=== PATIENT | male | born 1995 | race Caucasian/White ===

== ENCOUNTER 2022-01-21 09:12 | Emergency (ER) | payer MEDICAID ==
[~2022-01-21] VITALS: Ht 188 cm; Wt 131.5 kg
[2022-01-21 10:30] LABS: Basophils # (auto) 0.2 10 ^3/uL (0-0.2); Basophils % (auto) 1.6 % (0.0-2.0); Eosinophils # (auto) 0 10 ^3/uL (0-0.8); Eosinophils % (auto) 0.1 % (0.0-7.0); Hematocrit 46.2 % (41.0-53.0); Lymphocytes # (auto) 0.9 10 ^3/uL (0.4-5.4); Lymphocytes % (auto) 6.5 % (10.0-50.0); Mean Corpuscular Hemoglobin 28.5 pg (28.0-32.0); Mean Corpuscular Hgb Conc. 34.5 g/dL (32.0-36.0); Mean Corpuscular Volume 82.5 fL (80.0-100.0); Monocytes # (auto) 0.5 10 ^3/uL (0-1.3); Monocytes % (auto) 3.3 % (0.0-12.0); Neutrophils # (auto) 12.5 10 ^3/uL (1.6-8.6); Neutrophils % (auto) 88.5 % (37.0-80.0); Red Blood Cells 5.61 10^6/uL (4.5-5.90); Red Cell Distribution Width 13.6 % (11.8-14.3); White Blood Cell 14.1 10^3/uL (4.4-10.8)
[2022-01-21 10:34] LABS: Albumin 4.3 g/dL (3.4-5.0); Calcium 9.4 mg/dL (8.5-10.1); Potassium 3.6 mmol/L (3.5-5.1)
[2022-01-21 10:37] LABS: BUN/Creatinine Ratio 12.3; Bilirubin, Total 0.4 mg/dL (0.2-1.0); Total Protein 8.8 g/dL (6.4-8.2)
[2022-01-21 12:18] LABS: Urine Bacteria FEW /hpf (None Seen); Urine Blood Negative /uL (Negative); Urine Mucus FEW (None Seen); Urine Specific Gravity 1.029 (1.001-1.035); Urine WBC <1 /hpf (0 - 3)
[2022-01-21] MEDS ORDERED: HYDROmorphone HCL 2 MG/ML VL IV ONE (13:00)
[2022-01-21] MEDS ORDERED: ONDANSETRON HCL 4 MG/2 ML VIAL IV ONE (13:00)
[2022-01-21] MEDS ORDERED: CIPR-173 PO ×2 (13:09→13:36)
[2022-01-21] MEDS ORDERED: ONDA-144 PO ×2 (13:09→13:36)
[2022-01-21] MEDS ORDERED: PERCOT PO ×2 (13:09→13:36)
[2022-01-21 14:22] VITALS: BP 143/90
== END 2022-01-21 14:24 | disposition home or self-care (01) ==
LOC: ER 09:12
DX: K29.70 Gastritis, unspecified, without bleeding (principal); N39.0 Urinary tract infection, site not specified; I10 Essential (primary) hypertension
CPT/HCPCS: 36415; 74176; 80053; 81001; 83690; 85025; 96374; 96375; 99285; J1170; J2405

== ENCOUNTER 2022-04-19 08:34 | Emergency (ER) | payer MEDICAID ==
[~2022-04-19] VITALS: Ht 188 cm; Wt 133.4 kg
[~2022-04-19 08:34] MED LIST: CIPR-173 PO; ONDA-144 PO; PERCOT PO
[2022-04-19 08:40] VITALS: BP 164/101
[2022-04-19 09:16] LABS: Basophils # (auto) 0 10 ^3/uL (0-0.2); Basophils % (auto) 0.5 % (0.0-2.0); Eosinophils # (auto) 0.2 10 ^3/uL (0-0.8); Eosinophils % (auto) 2.2 % (0.0-7.0); Hematocrit 44.3 % (41.0-53.0); Lymphocytes # (auto) 1.6 10 ^3/uL (0.4-5.4); Lymphocytes % (auto) 22.9 % (10.0-50.0); Mean Corpuscular Hemoglobin 28.4 pg (28.0-32.0); Mean Corpuscular Hgb Conc. 33.9 g/dL (32.0-36.0); Mean Corpuscular Volume 83.7 fL (80.0-100.0); Monocytes # (auto) 0.6 10 ^3/uL (0-1.3); Monocytes % (auto) 8.2 % (0.0-12.0); Neutrophils # (auto) 4.8 10 ^3/uL (1.6-8.6); Neutrophils % (auto) 66.2 % (37.0-80.0); Nucleated Red Blood Cells % 0.1 %; Red Blood Cells 5.29 10^6/uL (4.5-5.90); Red Cell Distribution Width 13.8 % (11.8-14.3); White Blood Cell 7.2 10^3/uL (4.4-10.8)
[2022-04-19 09:25] LABS: Albumin 3.8 g/dL (3.4-5.0); BUN/Creatinine Ratio 13.5; Calcium 8.8 mg/dL (8.5-10.1); Potassium 3.5 mmol/L (3.5-5.1)
[2022-04-19 09:27] LABS: Bilirubin, Total 0.6 mg/dL (0.2-1.0)
[2022-04-19] MEDS ORDERED: METOCLOPRAMIDE HCL 5MG/ml INJ 2ml VIAL IM ONE (12:30)
[2022-04-19] MEDS ORDERED: KETOROLAC TROMETH 60MG/2ML VIAL IM ONE (12:30)
[2022-04-19] MEDS ORDERED: OMEP-263 PO (15:39)
[2022-04-19] MEDS ORDERED: NAP500T PO (15:39)
[2022-04-19] MEDS ORDERED: OLME20TA53 PO (15:39)
== END 2022-04-19 17:01 | disposition left against medical advice (07) ==
LOC: ER 08:34
DX: R07.89 Other chest pain (principal); I10 Essential (primary) hypertension; K20.90 Esophagitis, unspecified without bleeding; Z79.899 Other long term (current) drug therapy; Z79.2 Long term (current) use of antibiotics
CPT/HCPCS: 36415; 71046; 80053; 84484; 85025; 93005; 96372; 99285; J1885; J2765

== ENCOUNTER 2024-02-15 16:38 | Emergency (ER) | payer MEDICAID ==
[~2024-02-15] VITALS: Ht 188 cm; Wt 133.7 kg
[~2024-02-15 16:38] MED LIST changes: +NAP500T PO; +OLME20TA53 PO; +OMEP-448 PO
[2024-02-15 17:06] VITALS: BP 137/98; PULSE 107; RESP 18; O2SAT 96
[2024-02-15 20:20] LABS: Urine Bacteria FEW /hpf (None Seen); Urine Blood Negative /uL (Negative); Urine Clarity Clear (Clear); Urine Color Yellow (Yellow); Urine Mucus FEW (None Seen); Urine Protein, UAD 1+ (Negative); Urine Specific Gravity 1.032 (1.001-1.035); Urine Urobilinogen Normal (Negative); Urine WBC 28 /hpf (0 - 3); Urine pH 5.5 (5.0-9.0)
[2024-02-15] MEDS ORDERED: BACDST PO (20:26)
== END 2024-02-15 20:45 | disposition home or self-care (01) ==
LOC: ER 16:38
DX: I86.1 Scrotal varices (principal); N39.0 Urinary tract infection, site not specified; I10 Essential (primary) hypertension
CPT/HCPCS: 76870; 81001